=== PATIENT | female | born 1980 | race Caucasian/White ===

== ENCOUNTER → 2016-07-02 | Outpatient (CLI) | payer MEDICAID ==
[~2016-07-02] VITALS: Ht 170.2 cm; Wt 126.8 kg
[~2016-07-02] MED LIST: KEPPRA 500MG500 MG PO; KEPPRA500 MG PO; MOTRIN 400400 MG/TAB PO; TEGRETOL 2200 MG/TAB PO; TYLENOL 325MG325 MG PO
[2016-07-02 12:06] VITALS: BP 162/93; PULSE 81
[2016-07-02 13:43] VITALS: BP 137/83; PULSE 86
[2016-07-02 14:00] VITALS: BP 149/74; PULSE 83
[2016-07-02 14:20] VITALS: BP 114/54; PULSE 76
== END ==
LOC: COL.RAD 11:09
DX: M51.06 Intervertebral disc disorders with myelopathy, lumbar region (principal); M79.605 Pain in left leg; M79.604 Pain in right leg
CPT/HCPCS: G9654; J2250; J2704

== ENCOUNTER 2017-06-30 08:41 | Outpatient (CLI) | payer MEDICAID ==
[~2017-06-30] VITALS: Ht 170.2 cm; Wt 123.3 kg
[2017-06-30] VITALS (12 sets, daily range): BP systolic 105–134; BP diastolic 44–86; PULSE 74–111; TEMP 97.4
[2017-06-30 09:02] LABS: HEMATOCRIT 43.7 % (37.0-47.0); HEMOGLOBIN 14.3 g/dl (12.5-16.0); MEAN CELL VOLUME 95 fl (80.0-100.0); MEAN CORPUSCULAR HEMOGLOBIN 31 pg (27.0-31.0); MEAN CORPUSCULAR HGB CONC 33 g/dl (33.0-37.0); MEAN PLATELET VOLUME 9.6 fl (7.4-10.4); PLATELET COUNT 221 K/mm3 (130-400); RED BLOOD COUNT 4.62 M/mm3 (4.10-5.30); REDCELL DISTRIBUTION WIDTH-CV 12.3 % (11.5-14.5)
[2017-06-30 09:09] LABS: PROTHROMBIN TIME 11.9 SECONDS (9.7-12.8)
[2017-06-30] MEDS ORDERED: TYLENOL 325MG325 MG PO (09:09)
[2017-06-30 09:12] LABS: CALCIUM 9.3 mg/dL (8.4-10.2); CREATININE, serum 1.02 mg/dL (0.52-1.25); POTASSIUM 3.8 mmol/L (3.4-5.0)
== END 2017-06-30 13:33 | disposition home or self-care (01) ==
LOC: COL.RAD 08:41
PROVIDERS: Internal Medicine Cardiovascular Disease
DX: R93.1 Abnormal findings on diagnostic imaging of heart and coronary circulation (principal); I10 Essential (primary) hypertension; Z87.01 Personal history of pneumonia (recurrent); K21.9 Gastro-esophageal reflux disease without esophagitis; G89.29 Other chronic pain; R51 Headache; G40.909 Epilepsy, unspecified, not intractable, without status epilepticus; Z88.6 Allergy status to analgesic agent; Z88.5 Allergy status to narcotic agent; Z88.0 Allergy status to penicillin; F40.240 Claustrophobia
CPT/HCPCS: G9654; J2250; J2704

== ENCOUNTER → 2019-06-29 | Outpatient (CLI) | payer BC, MEDICAID | LOC: MC.RAD 10:31 | DX: Z12.31 Encounter for screening mammogram for malignant neoplasm of breast (principal); N63.21 Unspecified lump in the left breast, upper outer quadrant ==

== ENCOUNTER → 2019-07-06 | Outpatient (CLI) | payer MEDICAID | LOC: MC.RAD 10:19 | DX: N63.20 Unspecified lump in the left breast, unspecified quadrant (principal) ==

== ENCOUNTER 2019-10-06 05:03 | Day surgery (SDC) | payer MEDICAID ==
[~2019-10-06] VITALS: Ht 170.2 cm; Wt 116.6 kg
[2019-10-06] VITALS (10 sets, daily range): BP systolic 106–137; BP diastolic 50–75; PULSE 79–93; TEMP 97–98.8
[~2019-10-06 05:03] MED LIST changes: +CORICIDIN COUGH1 TAB PO; +MOTRIN 200200 MG/TAB PO
[2019-10-06] MEDS ORDERED: FLONASEALLERGY NS (05:30)
[2019-10-06] MEDS ORDERED: IBU600 MG PO (13:51)
[2019-10-06] MEDS ORDERED: PERCOCET 325 MG1 TA2 PO (13:51)
--- NOTE | 2019-10-06 18:30 | NUR ---
Bedside shift report. While in room for report patient state she would like to try to go to bathroom and walk. Patient assisted up to bathroom and able to have small BM. Patient ambulates in navarrete with assist times 1. Patient back to room and sitting up in chair at side of bed. Call light in reach.
[2019-10-07 04:00] VITALS: BP 105/59; PULSE 78; TEMP 98
--- NOTE | 2019-10-07 06:30 | NUR ---
Bedside report recieved from Anne AMADOR. 0640: Patient up to ambulate the halls. 0810: Sawant catheter removed and patient tolerates well.
[2019-10-07 08:00] VITALS: BP 110/61; PULSE 95; TEMP 97.9
--- NOTE | 2019-10-07 11:00 | NUR ---
Patient takes shower and bandages off. Incisions clean dry intact. Transportation via access to care called and scheduled pick-up 1230: Patient given discharge instructions and copys made for kamlesh Bermudez medical case manager aswell as faxed to the number given. Questions answered and plan of care discussed. 1330: Patient to ED via wheelchair and access to care transportation here for ride home. Patient gets into vehicle and tolerates well.
== END 2019-10-07 13:30 | disposition home or self-care (01) ==
LOC: SDCO 05:03 → OB 11:20 → SDCO 10-07 13:30
DX: N92.0 Excessive and frequent menstruation with regular cycle (principal); N94.5 Secondary dysmenorrhea; N92.5 Other specified irregular menstruation; N39.3 Stress incontinence (female) (male); G40.909 Epilepsy, unspecified, not intractable, without status epilepticus; F79 Unspecified intellectual disabilities; E78.5 Hyperlipidemia, unspecified; G43.909 Migraine, unspecified, not intractable, without status migrainosus; E66.01 Morbid (severe) obesity due to excess calories; Z68.41 Body mass index [BMI] 40.0-44.9, adult; F70 Mild intellectual disabilities; F32.9 Major depressive disorder, single episode, unspecified; F17.210 Nicotine dependence, cigarettes, uncomplicated; Z98.51 Tubal ligation status; Z79.899 Other long term (current) drug therapy; Z88.5 Allergy status to narcotic agent; Z88.0 Allergy status to penicillin; Z88.8 Allergy status to other drugs, medicaments and biological substances; Z91.048 Other nonmedicinal substance allergy status
CPT/HCPCS: OP; A4314; J0690; J1100; J1885; J2405; J2704; J3010; J7120

== ENCOUNTER 2019-10-08 21:57 | Emergency (ER) | payer MEDICAID ==
[~2019-10-08] VITALS: Ht 170.2 cm; Wt 116.8 kg
[~2019-10-08 21:57] MED LIST changes: +FLONASEALLERGY NS; +IBU600 MG PO; +PERCOCET 325 MG1 TA2 PO
[2019-10-08 22:12] VITALS: TEMP 98.5
[2019-10-08 23:01] LABS: COLLECTION METHOD CLEAN CATCH
[2019-10-08 23:04] LABS: BASO # 0.1 (0.0-0.2); BASO % 0.7 % (0.0-2.0); EOS # 0.2 (0.0-0.7); EOS % 1.6 % (0-4.0); GRAN # 6.7 (1.4-6.5); GRAN % 65.9 % (42.2-75.2); HEMATOCRIT 40.5 % (37.0-47.0); HEMOGLOBIN 12.9 g/dl (12.5-16.0); LYMPH # 2.4 (1.2-3.4); LYMPH % 23.6 % (20.0-51.0); MEAN CELL VOLUME 97 fl (80.0-100.0); MEAN CORPUSCULAR HEMOGLOBIN 31 pg (27.0-31.0); MEAN CORPUSCULAR HGB CONC 32 g/dl (33.0-37.0); MEAN PLATELET VOLUME 9.9 fl (7.4-10.4); MONO # 0.7 (0.1-0.6); MONO % 7.3 % (1.7-9.3); PLATELET COUNT 215 K/mm3 (130-400); RED BLOOD COUNT 4.19 M/mm3 (4.10-5.30); REDCELL DISTRIBUTION WIDTH-CV 12.4 % (11.5-14.5)
[2019-10-08 23:11] LABS: MUCOUS Present /lpf; PH 5 (5-8); SQUAMOUS EPITHELIAL 0-2 /hpf; URINE APPEARANCE Hazy; URINE BACTERIA None Seen /hpf; URINE BILIRUBIN Negative (NEGATIVE); URINE BLOOD 2+ (NEGATIVE); URINE COLOR Yellow; URINE GLUCOSE Negative (NEGATIVE); URINE KETONE Negative (NEGATIVE); URINE LEUKOCYTE ESTERASE Negative (NEGATIVE); URINE NITRATE Negative (NEGATIVE); URINE PROTEIN(semi-quant) Negative (NEGATIVE); URINE RBC 20-50 /hpf; URINE UROBILINOGEN Negative (NEGATIVE)
[2019-10-08 23:18] LABS: ALBUMIN 3.7 gm/dL (3.5-5.0); BILIRUBIN,TOTAL 0.4 mg/dL (0.0-1.0); C-REACTIVE PROTEIN 1.8 mg/dL (0.0-0.9); CALCIUM 9.2 mg/dL (8.4-10.2); CREATININE, serum 0.94 (0.52-1.25); POTASSIUM 4.3 mmol/L (3.4-5.0); TOTAL PROTEIN 7.1 gm/dL (6.4-8.2)
[2019-10-09] MEDS ORDERED: DULCOLAX STOOL100 MG PO (01:00)
[2019-10-09] MEDS ORDERED: ZOFRAN 4MG T4 MG/TAB PO (01:00)
[2019-10-09 01:16] VITALS: BP 118/83; PULSE 77
== END 2019-10-09 01:17 | disposition home or self-care (01) ==
LOC: COL.ER 21:57
PROVIDERS: Emergency Medicine
DX: G89.18 Other acute postprocedural pain (principal); R10.9 Unspecified abdominal pain; G40.909 Epilepsy, unspecified, not intractable, without status epilepticus; F17.210 Nicotine dependence, cigarettes, uncomplicated; Z79.51 Long term (current) use of inhaled steroids; Z90.710 Acquired absence of both cervix and uterus; Z90.49 Acquired absence of other specified parts of digestive tract
CPT/HCPCS: J1885; J2270; J2405; J7030

== ENCOUNTER 2020-07-07 16:06 | Emergency (ER) | payer MEDICAID ==
[~2020-07-07] VITALS: Ht 170.2 cm; Wt 136.4 kg
[~2020-07-07 16:06] MED LIST changes: +DULCOLAX STOOL100 MG PO; +ZOFRAN 4MG T4 MG/TAB PO
[2020-07-07 16:10] VITALS: TEMP 98.6
[2020-07-07 16:37] LABS: BASO % 0.6 % (0.0-2.0); EOS # 0.1 (0.0-0.7); GRAN # 4.6 (1.4-6.5); GRAN % 65.5 % (42.2-75.2); HEMATOCRIT 42.6 % (37.0-47.0); HEMOGLOBIN 13.9 g/dl (12.5-16.0); LYMPH # 1.7 (1.2-3.4); LYMPH % 23.7 % (20.0-51.0); MEAN CELL VOLUME 95 fl (80.0-100.0); MEAN CORPUSCULAR HEMOGLOBIN 31 pg (27.0-31.0); MEAN CORPUSCULAR HGB CONC 33 g/dl (33.0-37.0); MEAN PLATELET VOLUME 9.7 fl (7.4-10.4); MONO # 0.6 (0.1-0.6); MONO % 8.8 % (1.7-9.3); PLATELET COUNT 230 K/mm3 (130-400); RED BLOOD COUNT 4.47 M/mm3 (4.10-5.30); REDCELL DISTRIBUTION WIDTH-CV 12.3 % (11.5-14.5)
[2020-07-07 16:54] LABS: COLLECTION METHOD CLEAN CATCH
[2020-07-07 16:56] LABS: ALBUMIN 3.9 gm/dL (3.5-5.0); BILIRUBIN,TOTAL 0.3 mg/dL (0.0-1.0); C-REACTIVE PROTEIN 0.8 mg/dL (0.0-0.9); CREATININE, serum 1.01 (0.52-1.25); POTASSIUM 3.9 mmol/L (3.4-5.0); TOTAL PROTEIN 6.9 gm/dL (6.4-8.2)
[2020-07-07] MEDS ORDERED: ZOLOFT 50MG50 MG PO (17:05)
[2020-07-07 17:17] LABS: MUCOUS Present /lpf; PH 5 (5-8); SQUAMOUS EPITHELIAL 0-2 /hpf; URINE APPEARANCE Clear; URINE BACTERIA Rare /hpf; URINE BILIRUBIN Negative (NEGATIVE); URINE BLOOD Negative (NEGATIVE); URINE COLOR Yellow; URINE GLUCOSE Negative (NEGATIVE); URINE KETONE Negative (NEGATIVE); URINE LEUKOCYTE ESTERASE Negative (NEGATIVE); URINE NITRATE Negative (NEGATIVE); URINE PROTEIN(semi-quant) Negative (NEGATIVE); URINE RBC 0-2 /hpf; URINE UROBILINOGEN Negative (NEGATIVE)
[2020-07-07 18:45] VITALS: BP 134/78; PULSE 86
== END 2020-07-07 18:45 | disposition home or self-care (01) ==
LOC: COL.ER 16:06
PROVIDERS: Nurse Practitioner
DX: G40.909 Epilepsy, unspecified, not intractable, without status epilepticus (principal); Z88.0 Allergy status to penicillin; Z88.8 Allergy status to other drugs, medicaments and biological substances; Z88.6 Allergy status to analgesic agent
CPT/HCPCS: J1953

== ENCOUNTER 2020-09-07 20:20 | Emergency (ER) | payer MEDICAID ==
[~2020-09-07] VITALS: Ht 170.2 cm; Wt 113.6 kg
[~2020-09-07 20:20] MED LIST changes: +ZOLOFT 50MG50 MG PO
[2020-09-07 20:29] VITALS: BP 128/90; TEMP 97.7
[2020-09-07 21:17] VITALS: PULSE 78
== END 2020-09-07 21:17 | disposition home or self-care (01) ==
LOC: COL.ER 20:20
DX: T63.331A Toxic effect of venom of brown recluse spider, accidental (unintentional), initial encounter (principal); G40.909 Epilepsy, unspecified, not intractable, without status epilepticus; F17.210 Nicotine dependence, cigarettes, uncomplicated; Z88.0 Allergy status to penicillin; Z88.8 Allergy status to other drugs, medicaments and biological substances; Z88.6 Allergy status to analgesic agent

== ENCOUNTER 2021-01-11 13:28 | Emergency (ER) | payer MEDICAID ==
[~2021-01-11] VITALS: Ht 170.2 cm; Wt 127.3 kg
--- NOTE | 2021-01-11 15:10 | NUR ---
SW received call for consult on patient in ED. Patient is reported to be from [facility]. SW attempted to met with patient about care. Patient refused to talk with SW about her care to support her. SW Staffed with Nurse about care. Nurse reports that the patient stated that she would only talk with one of our social workers or her case mgr. SW called several numbers on the patients face sheet. Patient reports that her family member is Lara Kaur [facility]. SW called [phone] and [phone], . Nurse was able to get a [facility] . Called tennis professional number at for weekend care support and did not get any answer. Cass reports that the patient lives alone and attends the day services program Wednesday Through Wednesday. They are not able to provide transportation or services through the weekend. SW educated that we are unable to obtain information from her to support her. Cass reported that she cortney escalate to her supervisior. Awaiting a call. SW spoke with supervisior and discussed calling PD to support obtaining a contact for her. Notified Dispatch of patient not able to talk to us and locating a person to contact from [facility] to support client . Dispatch reports that they will have an officer called Sean Ruiz and stated that he attempted to locate someone and the office is closed. Officer suggested calling [facility] and seeing if there are any supports there. SW called [facility] at [phone] and spoke with Haylee at the stabilization unit. Phone Call dropped. Attempted another conversation with patient. Patient stated that she was having seizures. Educated on Following up with [facility] on Wednesday. Called contact that was with patient. Patient gave another number to a friend [employer] will transport her home. NF>
[2021-01-11 15:53] VITALS: BP 120/61; PULSE 80
== END 2021-01-11 15:52 | disposition home or self-care (01) ==
LOC: COL.ER 13:28
DX: F41.9 Anxiety disorder, unspecified (principal); K14.8 Other diseases of tongue; G40.909 Epilepsy, unspecified, not intractable, without status epilepticus; Z79.899 Other long term (current) drug therapy; Z88.6 Allergy status to analgesic agent

== ENCOUNTER 2021-01-13 19:05 | Emergency (ER) | payer MEDICAID ==
[~2021-01-13] VITALS: Ht 172.7 cm; Wt 106.8 kg
[2021-01-13 19:05] VITALS: BP 136/85; PULSE 92; TEMP 98.6
== END 2021-01-13 20:00 | disposition home or self-care (01) ==
LOC: COL.ER 19:05
DX: F41.9 Anxiety disorder, unspecified (principal); G40.909 Epilepsy, unspecified, not intractable, without status epilepticus; Z79.899 Other long term (current) drug therapy

== ENCOUNTER 2021-09-11 13:07 | Emergency (ER) | payer MEDICAID ==
[~2021-09-11] VITALS: Ht 170.2 cm; Wt 120.5 kg
[2021-09-11 13:09] VITALS: TEMP 98.2
[2021-09-11 13:50] LABS: BASO # 0.1 K/mm3 (0.0-0.2); BASO % 0.7 % (0.0-2.0); EOS # 0.1 K/mm3 (0.0-0.7); EOS % 0.7 % (0.0-4.0); GRAN # 5.7 K/mm3 (1.4-6.5); GRAN % 77.8 % (42.2-75.2); HEMATOCRIT 43.4 % (37.0-47.0); HEMOGLOBIN 14.4 g/dl (12.5-16.0); LYMPH % 13.9 % (20.0-51.0); MEAN CELL VOLUME 92 fl (80.0-100.0); MEAN CORPUSCULAR HEMOGLOBIN 31 pg (27-31); MEAN CORPUSCULAR HGB CONC 33 g/dl (33.0-37.0); MEAN PLATELET VOLUME 9.6 fl (7.4-10.4); MONO # 0.5 K/mm3 (0.1-0.6); MONO % 6.5 % (1.7-9.3); PLATELET COUNT 236 K/mm3 (130-400); RED BLOOD COUNT 4.71 M/mm3 (4.10-5.30); REDCELL DISTRIBUTION WIDTH-CV 12.3 % (11.5-14.5)
[2021-09-11 14:07] LABS: ALANINE AMINOTRANSFERASE 12 U/L (0-55); ALBUMIN 3.7 gm/dL (3.5-5.0); ALKALINE PHOSPHATASE 83 U/L (40-150); ANION GAP 8 mmol/L (7-16); AST,SGOT 12 U/L (5-34); BILIRUBIN,TOTAL 0.5 mg/dL (0.2-1.2); BLOOD UREA NITROGEN 14 mg/dL (7-19); CALCIUM 8.9 mg/dL (8.4-10.2); CARBON DIOXIDE 23 mmol/L (22-29); CHLORIDE 108 mmol/L (98-107); CREATININE, serum 0.96 mg/dL (0.57-1.11); GLUCOSE 118 mg/dL (70-99); POTASSIUM 4.1 mmol/L (3.5-4.5); SODIUM 139 mmol/L (136-145); TOTAL PROTEIN 6.9 gm/dL (6.2-8.1)
[2021-09-11 14:11] LABS: COLLECTION METHOD CLEAN CATCH
[2021-09-11 14:13] LABS: ALCOHOL(ethanol),MEDICAL < 10 mg/dL (0-10)
[2021-09-11 14:38] LABS: AMORPHOUS CRYSTAL Present (NOT PRESENT); MUCOUS Present (NOT PRESENT); PH 5 (5-8); URINE APPEARANCE Cloudy (CLEAR/HAZY); URINE BACTERIA Rare /hpf (NONE SEEN); URINE BILIRUBIN Negative (NEGATIVE); URINE BLOOD Negative (NEGATIVE); URINE COLOR Yellow (YELLOW); URINE GLUCOSE Negative (NEGATIVE); URINE KETONE Negative (NEGATIVE); URINE LEUKOCYTE ESTERASE 2+ (NEGATIVE); URINE NITRATE Negative (NEGATIVE); URINE PROTEIN(semi-quant) 2+ (NEGATIVE); URINE UROBILINOGEN Negative (NEGATIVE)
[2021-09-11 14:41] LABS: TRICYCLIC ANTIDEPRESS URINE NEGATIVE
[2021-09-11 19:02] VITALS: BP 123/67; PULSE 82
== END 2021-09-11 19:03 | disposition home or self-care (01) ==
LOC: COL.ER 13:07
PROVIDERS: Physician Assistant
DX: R56.9 Unspecified convulsions (principal); E22.1 Hyperprolactinemia
CPT/HCPCS: J1953; J7030

== ENCOUNTER 2022-06-09 12:34 | Observation (INO) | payer MEDICAID ==
[~2022-06-09] VITALS: Ht 170.2 cm; Wt 135.0 kg
[2022-06-09 13:20] LABS: BASO % 0.4 % (0.0-2.0); EOS # 0.1 K/mm3 (0.0-0.7); EOS % 0.7 % (0.0-4.0); GRAN # 8.1 K/mm3 (1.4-6.5); GRAN % 75.2 % (42.2-75.2); HEMATOCRIT 44.6 % (37.0-47.0); HEMOGLOBIN 14.2 g/dl (12.5-16.0); LYMPH # 1.6 K/mm3 (1.2-3.4); LYMPH % 14.7 % (20.0-51.0); MEAN CELL VOLUME 94 fl (80.0-100.0); MEAN CORPUSCULAR HEMOGLOBIN 30 pg (27-31); MEAN CORPUSCULAR HGB CONC 32 g/dl (33.0-37.0); MEAN PLATELET VOLUME 9.9 fl (7.4-10.4); MONO # 0.8 K/mm3 (0.1-0.6); MONO % 7.6 % (1.7-9.3); PLATELET COUNT 202 K/mm3 (130-400); RED BLOOD COUNT 4.76 M/mm3 (4.10-5.30); REDCELL DISTRIBUTION WIDTH-CV 12.4 % (11.5-14.5)
[2022-06-09 13:33] LABS: ALANINE AMINOTRANSFERASE 9 U/L (0-55); ALBUMIN 3.3 gm/dL (3.5-5.0); ALKALINE PHOSPHATASE 86 U/L (40-150); ANION GAP 9 mmol/L (7-16); AST,SGOT 9 U/L (5-34); BLOOD UREA NITROGEN 12 mg/dL (7-19); CALCIUM 9.2 mg/dL (8.4-10.2); CARBON DIOXIDE 24 mmol/L (22-29); CHLORIDE 104 mmol/L (98-107); CREATININE, serum 0.96 mg/dL (0.57-1.11); GLUCOSE 111 mg/dL (70-99); LIPASE 23 U/L (8-78); POTASSIUM 3.9 mmol/L (3.5-4.5); SODIUM 137 mmol/L (136-145); TOTAL PROTEIN 7.4 gm/dL (6.2-8.1)
[2022-06-09 13:39] LABS: TROPONIN-I < 0.010 ng/mL (0.00-0.033)
[2022-06-09 13:48] LABS: COLLECTION METHOD CLEAN CATCH
[2022-06-09 13:57] LABS: URINE APPEARANCE Hazy (CLEAR/HAZY); URINE BLOOD Negative (NEGATIVE); URINE COLOR Yellow (YELLOW); URINE GLUCOSE Negative (NEGATIVE); URINE KETONE Negative (NEGATIVE); URINE NITRATE Negative (NEGATIVE); URINE PROTEIN(semi-quant) Negative (NEGATIVE); URINE UROBILINOGEN 0.2 E.U/dL (0.2-1.0)
[2022-06-09] MEDS ORDERED: PEPCID 20MG TAB20 MG PO (14:52)
[2022-06-09 16:16] LABS: INR 1.1 (0.8-3.0); PROTHROMBIN TIME 12.4 SECONDS (9.7-12.8)
[2022-06-09 16:19] LABS: PARTIAL THROMBOPLASTIN TIME 27.9 SECONDS (26.0-37.0)
[2022-06-09 17:31] VITALS: BP 146/73; PULSE 94; TEMP 98.4
[2022-06-09] MEDS ORDERED: MIRALAX PA17 GM/Dose PO (17:38)
--- NOTE | 2022-06-09 18:26 | NUR ---
PATIENT ADMITTED TO ROOM 317 FROM ER ACCOMPANIED BY DRAMATIC AGENT. PATIENT IS ALERT AND ORIENTED. LUNGS CTA. C/O PAIN 6/10 TO HER RIGHT SIDE, BUT STATES SHE DOES NOT WANT TO TAKE ANY PAIN MEDICATION WHEN OFFERED. SCAB NOTED TO RIGHT LOWER EXTREMITY, PATIENT STATES THIS IS FROM A CAT SCRATCH. PATIENT NOTED TO BE PICKING AT THE AREA. PATIENT ALSO COMPLAINING OF SORES AND ITCHING TO HER LABIA, ROBINA JARQUIN UPDATED WHO WILL ASSESS THE PATIENT TONIGHT. IV TO LEFT AC PATENT, SOME BLEEDING NOTED AFTER PATIENT PULLED IV DURING AMBULATION, AREA CLEANSED AND STILL FLUSHING WELL, AREA WRAPPED AND PATIENT ENCOURAGED TO NOTIFY RN IF SHE NOTICES ANY MORE BLEEDING FROM HER IV SITE, PATIENT AGREEABLE. PATIENT IS RESISTIVE TO CARES AND STAFF INTERVENTIONS. ORIENTED TO ROOM AND CALL LIGHT, PATIENT DENIES FURTHER NEEDS AT THIS TIME. CALL LIGHT WITHIN REACH.
--- NOTE | 2022-06-09 18:34 | NUR ---
ATTEMPTED TO COMPLETED MED REC WITH PATIENT, PATIENT STATES "YOU'RE ASKING STUPID QUESTIONS" AND REFUSED TO COMPLETED MED REC WITH THIS RN. PRIMARY CARE OFFICE NOTIFIED OF PATIENT'S ARRIVAL AND REQUEST MADE TO SEND CURRENT MED LIST. MED REC COMPELTED USING CURRENT MED LIST FROM PCP OFFICE, PER PATIENT, SHE DOES TAKE THREE KEPPRA BID AND HER "ANXIETY" MEDICATION ONCE PER DAY. DR. DISLA UPDATED.
[2022-06-09 19:50] VITALS: BP 134/75; PULSE 108; TEMP 97.4
--- NOTE | 2022-06-10 00:03 | NUR ---
THIS NURSE NOTED BLEEDING TO IV SITE. IV FLUSHES WELL. THIS NURSE WRAPPED IV WITH DORA WRAP AND YAYA WRAP. PATIENT INFORMED NOT TO PULL ON IV AND TO BE CAUTIOUS WITH IT. PATIENT VERBALIZED UNDERSTANDING AND DENIES FURTHER NEEDS AT THIS TIME
--- NOTE | 2022-06-10 00:05 | NUR ---
THIS NURSE WENT IN ROOM WITH BRITTON QUARLES TO BE A WITNESS JESSE QUARLES WAS EXAMINING VAGINA. ROBINA ORDERED A REPEAT UA TO TEST FOR CHLAMYDIA AND GONORRHEA. ROBINA ALSO ORDERED UROJET AND TUCKS PAD TO PROVIDE RELIEF FOR PATIENT. THIS NURSE PERFORMED MARY GRACE CARE ON PATIENT AND APPLIED URO JET TO LESIONS. PATIENT DENIES FURTHER QUESTIONS OR CONERNS AT THIS TIME
[2022-06-10 00:15] VITALS: BP 148/85; PULSE 97; TEMP 98.6
[2022-06-10 04:00] VITALS: BP 131/83
[2022-06-10 07:19] LABS: BASO # 0.1 K/mm3 (0.0-0.2); BASO % 0.6 % (0.0-2.0); EOS # 0.1 K/mm3 (0.0-0.7); EOS % 1.5 % (0.0-4.0); GRAN # 5.8 K/mm3 (1.4-6.5); GRAN % 68.8 % (42.2-75.2); HEMATOCRIT 38.6 % (37.0-47.0); HEMOGLOBIN 12.3 g/dl (12.5-16.0); LYMPH # 1.6 K/mm3 (1.2-3.4); LYMPH % 19.1 % (20.0-51.0); MEAN CELL VOLUME 94 fl (80.0-100.0); MEAN CORPUSCULAR HEMOGLOBIN 30 pg (27-31); MEAN CORPUSCULAR HGB CONC 32 g/dl (33.0-37.0); MEAN PLATELET VOLUME 10.4 fl (7.4-10.4); MONO # 0.8 K/mm3 (0.1-0.6); MONO % 9.2 % (1.7-9.3); PLATELET COUNT 188 K/mm3 (130-400); RED BLOOD COUNT 4.12 M/mm3 (4.10-5.30); REDCELL DISTRIBUTION WIDTH-CV 12.4 % (11.5-14.5)
[2022-06-10 07:30] LABS: CALCIUM 8.7 mg/dL (8.4-10.2); CREATININE, serum 0.93 mg/dL (0.57-1.11); POTASSIUM 3.7 mmol/L (3.5-4.5)
[2022-06-10 08:19] VITALS: BP 134/69; PULSE 94; TEMP 98.6
--- NOTE | 2022-06-10 09:13 | NUR ---
THIS RN ATTEMPTED TO DO MORNING ASSESSMENT WITH MORNING MEDICATION PASS, HOWEVER, PATIENT REFUSED. PATIENT STATES SHE IS HAVING SOME PAIN TO HER RIGHT SIDE, STATES HER PAIN IS WORSE WHEN TRYING TO TAKE A DEEP BREATH, AND STATES PAIN IS 10/10. THIS RN OFFERED PRN PAIN MEDICATION, BUT PATIENT REFUSED AND STATES SHE NEEDS TO THINK ABOUT IT. PATIENT THEN STATES SHE WANTS PAIN MEDICATION BUT "SOMETHING STRONGER THAN WHAT I GOT YESTERDAY BECAUSE IT DIDN'T DO ANYTHING." PA STUDENT, PEG, UPDATED REGARDING PATIENT'S REQUEST FOR STRONGER PAIN MEDICATION. PATIENT ALSO STATES SHE VOMITTED DURING BREAKFAST, HOWEVER, NO EMESIS WAS SEEN. PRN ZOFRAN OFFERED BUT PATIENT REFUSED AND STATED SHE MAY TAKE IT LATER. THIS RN WENT TO REASSESS PATIENT AND NOTED PATIENT TO BE SLEEPING AT THIS TIME, DOES NOT APPEAR TO BE IN PAIN OR UNCOMFORTABLE, WILL REASSESS PAIN UPON PATIENT'S AWAKENING. HEPARIN GTT RUNNING AT THIS TIME, NO SIGNS OF BLEEDING NOTED. CALL LIGHT WITHIN REACH.
--- NOTE | 2022-06-10 09:48 | NUR ---
PATIENT STILL SLEEPING AT THIS TIME. NO SIGNS OR PAIN OR DISCOMFORT NOTED. HR ON TELE 86, RESPIRATORY RATE REGULAR.
--- NOTE | 2022-06-10 10:10 | NUR ---
Initial visit; Patient in pain and very uncomfortable. Medication Care Manager states she will return another time but will keep her in Medication Care Manager's prayers.
--- NOTE | 2022-06-10 10:25 | NUR ---
THIS RN AND PA STUDENT IN PATIENT'S ROOM TO ATTEMPT TO ASSESS PATIENT. PATIENT SLEEPING AND DIFFICULT TO AROUSE. STERNAL RUB PERFORMED X1, WHICH WAS EFFECTIVE IN WAKING PATIENT, HOWEVER, PATIENT BECAME AGITATED AT THIS RN. EDUCATION PROVIDED TO PATIENT ON NEED FOR STERNAL RUB DUE TO PATIENT BEING DIFFICULT TO AROUSE. PATIENT STATES SHE IS STILL HAVING PAIN AND NAUSEA AND IS NOW AGREEABLE TO MEDICATIONS. PRN APAP AND ZOFRAN GIVEN PER ORDER. TRUCK CLEANER AT BEDSIDE TO PERFORM VENOUS DUPLEX, PATIENT REQUESTED THIS RN STAY AT BEDSIDE AND STATES "I FEEL MORE COMFORTABLE WITH YOU HERE." THIS RN STAYED AT BEDSIDE FOR A FEW MINUTES AND THEN PATIENT STATES SHE IS OKAY IF RN LEAVES. PATIENT WITH CALL LIGHT IN PLACE, DENIES FURTHER NEEDS.
[2022-06-10 11:26] VITALS: BP 141/70; PULSE 90; TEMP 98.2
[2022-06-10] MEDS ORDERED: ELIQUIS 5MG PO (14:16)
--- NOTE | 2022-06-10 14:20 | NUR ---
RAJESH met with patient to complete intake. Patient is scheduled to discharge later today. Patient is a client and receives services through [facility] and [facility], however is high functioning and lives independently in her own apartment. Patient does not utilize any home oxygen or DME supplies. PCP is Carol Hess, and [facility] Patient has verbalized that she does not feel comfortable returning home because the chair she sleeps in is broken. RAJESH Sanz spoke with [facility] about the patients concerns. [facility] is scheduled to pick the patient up at 1500. Discharge plan: Home with continued services.
--- NOTE | 2022-06-10 15:53 | NUR ---
PATIENT DISCHARGED PER ORDER. IV TO RIGHT AC REMOVED WITH CATHETER INTACT, NO BLEEDING NOTED, GAUZE DRESSING APPLIED. DISCHARGE EDUCATION PROVIDED ON MEDICATIONS, FOLLOW UPS, AND DIAGNOSIS, THOUGH PATIENT DID NOT APPEAR TO BE INTERESTED IN DISCHARGE TEACHING. PER PATIENT, [facility] ASSISTS HER WITH HER MEDICATIONS. MEDICATION LIST AND DISCHARGE INFORMATION FAXED TO [facility] BY IMAGING SPECIALIST. PATIENT DENIES FURTHER QUESTIONS OR NEEDS. TELEMETRY DISCONTINUED. PATIENT ESCORTED OUT BY STAFF.
--- NOTE | 2022-06-10 16:16 | NUR ---
Financial Institution Manager contacted [facility] and spoke with patient's Tunnel Elastic Operator Chainstitch, Juan R Sanders to provide udpate. Patient receives Residential Services from [facility]. SW contacted [facility] and was advised they assist with patient's medications. SW faxed updates to both [facility] and [facility]. SW contacted [facility] and they will grain picker patient this afternoon and get her home.
== END 2022-06-10 15:56 | disposition home or self-care (01) ==
LOC: COL.ER 12:34 → MEDICAL 15:53
PROVIDERS: Emergency Medicine; Family Medicine; ADMIT Student in an Organized Health Care Education/Training Program
DX: I26.99 Other pulmonary embolism without acute cor pulmonale (principal); R10.11 Right upper quadrant pain; R03.0 Elevated blood-pressure reading, without diagnosis of hypertension; G40.909 Epilepsy, unspecified, not intractable, without status epilepticus; F32.A Depression, unspecified; F41.9 Anxiety disorder, unspecified; N90.89 Other specified noninflammatory disorders of vulva and perineum; Z79.899 Other long term (current) drug therapy
CPT/HCPCS: G0378; J1644; J1885; J2060; J2405; J3010; Q9967

== ENCOUNTER 2022-08-04 12:30 | Inpatient (IN) | payer MEDICAID ==
[~2022-08-04] VITALS: Ht 170.2 cm; Wt 122.0 kg
[~2022-08-04 12:30] MED LIST changes: +ELIQUIS 5MG PO; +MIRALAX PA17 GM/Dose PO; +PEPCID 20MG TAB20 MG PO
[2022-08-04 13:41] LABS: BASO # 0.1 K/mm3 (0.0-0.2); BASO % 0.5 % (0.0-2.0); EOS # 0.1 K/mm3 (0.0-0.7); EOS % 0.9 % (0.0-4.0); GRAN # 7.1 K/mm3 (1.4-6.5); GRAN % 73.4 % (42.2-75.2); HEMATOCRIT 43.3 % (37.0-47.0); HEMOGLOBIN 14.3 g/dl (12.5-16.0); LYMPH # 1.6 K/mm3 (1.2-3.4); LYMPH % 16.6 % (20.0-51.0); MEAN CELL VOLUME 89 fl (80.0-100.0); MEAN CORPUSCULAR HEMOGLOBIN 30 pg (27-31); MEAN CORPUSCULAR HGB CONC 33 g/dl (33.0-37.0); MEAN PLATELET VOLUME 10.1 fl (7.4-10.4); MONO # 0.8 K/mm3 (0.1-0.6); MONO % 7.8 % (1.7-9.3); PLATELET COUNT 316 K/mm3 (130-400); RED BLOOD COUNT 4.85 M/mm3 (4.10-5.30); REDCELL DISTRIBUTION WIDTH-CV 12.6 % (11.5-14.5)
[2022-08-04 14:01] LABS: ALANINE AMINOTRANSFERASE 13 U/L (0-55); ALBUMIN 3.2 gm/dL (3.5-5.0); ALKALINE PHOSPHATASE 75 U/L (40-150); ANION GAP 12 mmol/L (7-16); AST,SGOT 8 U/L (5-34); BILIRUBIN,TOTAL 0.5 mg/dL (0.2-1.2); BLOOD UREA NITROGEN 9 mg/dL (7-19); CALCIUM 9.5 mg/dL (8.4-10.2); CARBON DIOXIDE 25 mmol/L (22-29); CHLORIDE 104 mmol/L (98-107); CREATININE, serum 1.02 mg/dL (0.57-1.11); GLUCOSE 109 mg/dL (70-99); POTASSIUM 3.8 mmol/L (3.5-4.5); SODIUM 141 mmol/L (136-145); TOTAL PROTEIN 7.8 gm/dL (6.2-8.1)
[2022-08-04 14:07] LABS: TROPONIN-I < 0.010 ng/mL (0.00-0.033)
[2022-08-04 16:20] VITALS: BP 120/66; PULSE 101; TEMP 97.6
[2022-08-04 19:26] VITALS: BP 147/74; PULSE 93; TEMP 98.7
--- NOTE | 2022-08-05 07:07 | NUR ---
Shift assessment completed. Pt. A&O x4. Telemetery on. HR Reg. Breath sounds diminished bilat. lower lobes. O2 sat 93% room air. Pt. denies c/o pain. NPO satus remains at this time.
[2022-08-05 07:36] VITALS: BP 120/64; PULSE 92; TEMP 97.8
[2022-08-05 08:10] LABS: BASO % 0.4 % (0.0-2.0); EOS # 0.2 K/mm3 (0.0-0.7); EOS % 2.1 % (0.0-4.0); GRAN # 5.6 K/mm3 (1.4-6.5); GRAN % 73.2 % (42.2-75.2); LYMPH # 1.1 K/mm3 (1.2-3.4); LYMPH % 14.7 % (20.0-51.0); MEAN CELL VOLUME 89 fl (80.0-100.0); MEAN CORPUSCULAR HGB CONC 33 g/dl (33.0-37.0); MEAN PLATELET VOLUME 9.8 fl (7.4-10.4); MONO # 0.7 K/mm3 (0.1-0.6); MONO % 8.8 % (1.7-9.3); PLATELET COUNT 274 K/mm3 (130-400); RED BLOOD COUNT 4.09 M/mm3 (4.10-5.30); REDCELL DISTRIBUTION WIDTH-CV 12.6 % (11.5-14.5)
[2022-08-05 08:11] LABS: HEMATOCRIT 36.4 % (37.0-47.0); HEMOGLOBIN 12.1 g/dl (12.5-16.0); MEAN CORPUSCULAR HEMOGLOBIN 30 pg (27-31)
[2022-08-05 08:26] LABS: CALCIUM 8.6 mg/dL (8.4-10.2); CREATININE, serum 0.87 mg/dL (0.57-1.11); POTASSIUM 3.9 mmol/L (3.5-4.5)
--- NOTE | 2022-08-05 10:00 | NUR ---
Pt. up to BR stand by assist. SOA noted with activity. O2 sat 92%. Primary nurse informed and at bedside. O2 on @ 2L per NC. O2 applied sats increase to 95%.
--- NOTE | 2022-08-05 10:34 | NUR ---
Initial visit; Mar remembers Liner Machine Operator from a prior hospitalization. She speaks of her pain level and requests Liner Machine Operator bring her a stuffed animal. Liner Machine Operator is unable to locate a cat or dog with the gift shop closed and no other resource available at this time. Liner Machine Operator offers prayer for Mar.
[2022-08-05 11:47] VITALS: BP 127/80; PULSE 104; TEMP 97.4
--- NOTE | 2022-08-05 13:13 | NUR ---
The patient is a client and receives residential services from [facility]. RAJESH contacted Claudette, recreation programmer, at [facility]. She confirms the patient lives alone in [facility] [place] and receives residential services through them. They assist the patient with her meds, take her to appointments, and help with grocery shopping. The patient's PCP is Dr. Carol Avila and she receives her medications from [facility] Claudette reports that the patient does not have a DPOA-HC and she does not think the patient has an emergency contact. [facility] is listed as her emergency contact. Diana confirms that they will transport the patient home upon discharge. The hospital can either call the patient's independent worker, Cass Mcdowell (ph#[phone]) or Claudette at [phone] to set up transport home. *Discharge plan: home with residential services from [facility]*
--- NOTE | 2022-08-05 16:54 | NUR ---
Patient scheduled telehealth visit with Dr. Oliva, Infectious Disease. Pt consents to visit. Equipment set up, audio and video connections established. Visit conducted by . No technical concerns or issues.
--- NOTE | 2022-08-05 19:06 | NUR ---
THROUGHOUT THE DAY THE PATIENT HAS BEEN HAVING MOMENTS OF AGITATION AND NOT WANTING TO TAKE HER MEDICATIONS. This afternoon she talked with this RN and stated she just wants to feel better and would consider taking pain medications "later". 1709- pt stated she has had a ton of pain but did not want to say anything because she was afraid of taking more medication. She was given oxycodone as ordered in eMAR. Currently the patient is sitting up in bed eating a snack and is feeling much better. She appears more relaxed and is looking forward to her OR time tomorrow. PT is thankful and is hopeful for rest. Will report to oncoming RN.
[2022-08-05 19:41] VITALS: BP 117/63; PULSE 95; TEMP 97.5
[2022-08-06] VITALS (14 sets, daily range): BP systolic 109–136; BP diastolic 45–89; PULSE 82–104; TEMP 99–99.7
--- NOTE | 2022-08-06 03:02 | NUR ---
THIS NURSE IN TO ADMINSTER IV ANTIBIOTICS AND PATIENT AWAKE IN ROOM. THIS NURSED ASKED PATIENT IF SHE COULD GRAB HER VITALS WHILE SHE WAS AWAKE. PATIENT STATED "ITS 3 IN THE MORNING NO IM NOT AWAKE." "YOU GUYS DID THIS TO ME YESTERDAY AND WOKE ME UP." THIS NURSE INFORMED PATIENT IT IMPORTANT THAT WE MONITOR PATIENTS VITALS EVERY FOUR HOURS WHILE THEY ARE IN THE HOSPITAL. PATIENT STATED "IM NOT AWAKE AT 3 IN THE MORNING AND I DONT WANT YOU TO TAKE MY VITALS." NO FURTHER COMMENTS OR CONCERNS AT THIS TIME. CALL LIGHT WITHIN REACH
--- NOTE | 2022-08-06 06:26 | NUR ---
0247. PRESENTED TO ROOM TO CHECK ON PATIENT AND O2. PT ON RA AND SATS WERE 87% ATTEMPTED TO WAKE PT. PT DID NOT WAKE. STARTED PLACING NC ON PT, PT QUICKLY AWAKENED AND WAS EXTREMELY AGGITATED AND SHAKING HEAD. SHE STATS "I TOOK THAT OFF FOR A REASON!" ATTEMPTED TO NOTIFY PT OF REASON FOR O2 AND THAT SATS HAD DECREASED BELOW AN ACCEPTABLE RANGE. SHE CONTINUE TO SAY SHE TOOK IT OFF FOR A REASON AND IT WAS MESSING UP HER BREATHING. CONTINUED TO ATTEMPT EDUCATING PT. SHE IS CONTINUING TO REFUSE USE OF O2. VERBALIZED UNDERSTANDING TO PT AND STATED THAT IT WOULD BE CHARTED AND CARE PROVIDERS NOTIFIED. I WAS WALKING OUT SHE HOLLERED IM NOT STUPID. REPORTED TO RN PT ENCOUNTER. RN WAS ABLE TO CONVINCE PT TO GO ON O2. 0530 CALLED TO ROOM DUE TO PT SAYING SHE WAS SOB. WHEN PRESENTED ATTEMPTED TO CHECK O2 AND SHE BECAME ANGRY AND STATED "THAT ISNT WHY I CALLED YOU" ATTEMPTED TO EDUCATE PATIENT SHE CONTINUED TO SAY THAT THE PULSE OX WASN'T WHY SHE CALLED AND THAT SHE WAS SOA. ASKED PT TO FURTHER CLARIFY. PT STATES ANGRILY THAT i NEED TYLENOL! THATS ALL I CAN TAKE. LEFT ROOM AND REPORTED TO RN
--- NOTE | 2022-08-06 08:52 | NUR ---
SHIFT ASSESSMENT COMPLETED. MORNING MEDICATIONS HELD D/T BEING NPO, PATIENT REFUSED KEPPRA, STATES SHE WANTS TO TAKE IT WHEN SHE RETURNS. ALERT AND ORIENTED. C/O SOME PAIN TO HER THROAT FROM BEING DRY. GOING DOWN FOR SURGERY AT THIS TIME. REPORT GIVEN TO PERRY MICHEL IN SURGICAL.
[2022-08-06 10:50] LABS: PLEURAL FLUID RBC 20000 /mm3 (0-0); PLEURAL FLUID WBC 527 /mm3
[2022-08-06 10:59] LABS: PLEURAL FLUID APPEARANCE CLOUDY
[2022-08-06 11:01] LABS: PLEURAL FLUID COLOR OTHER
--- NOTE | 2022-08-06 13:02 | NUR ---
PATIENT TRANSFERED TO ROOM 350. PATIENT AWAKE AND ALERT, VITAL SIGNS STABLE (BP 120/91 HR 82 O2 SATURATION 96% 2LNC) CHEST TUBE INTACT AND DRAINING. DEVORAH AT 700CC WHEN TRANSFERED. IV FLUID AND VANCOMYCIN INFUSING.
--- NOTE | 2022-08-06 13:05 | NUR ---
PATIENT RETURNED FROM SURGERY AT 1000. POST OP VITAL SIGNS INITATED. PATIENT DROWSY BUT EASY TO AROUSE. C/O PAIN, PAIN MEDS OFFERED, WHICH PATIENT INITALLY REFUSED, BUT LATER AGREED TO. DRESSING TO CHEST TUBE NOTED TO NOT HAVE OCCLUSIVE DRESSING IN PLACE, OCCLUSIVE DRESSING PLACED. 700ML SANGUINEOUS DRAINAGE NOTED TO CHEST TUBE. PER DR. CLARK, PATIENT NOT TO BE ON SUCTION. PATIENT TRANSFERED TO ROOM 350 AT 1300. REPORT GIVEN TO PERRY العراقي.
--- NOTE | 2022-08-06 13:20 | NUR ---
Telehealth visit conducted with Dr. Kwabena Oliva, Infectious Disease. Patient consented to visit. Freight Car Cleaner initiated without any difficulties during exam. All questions were answered by Dr. Oliva.
--- NOTE | 2022-08-06 17:20 | NUR ---
PATIENT UNABLE TO ANSWER SIMPLE QUESTIONS. VERY DELAYED IN RESPONSE, AND OFTEN REPEATS SAME WORD MULTIPLE TIMES. PATIENT ASKED IF SHE WOULD LIKE ANY PAIN MEDICAITON, THEN STATED "YOU JUST GAVE ME SOME!" I INFORMED THE PATIENT THE LAST TIME SHE HAD PAIN MEDICATION WAS ON THE MEDICAL UNIT WITH HER PREVIOUS NURSE AT AROUND 1230. I THEN ASKED THE PATIENT IF SHE WOULD LIKE ME TO BRING HER TYLENOL, IT IS AVAILABLE AT THIS TIME. PATIENT REFUSED. KEPT REPEATING HER STOMACH HURT, THIS RN ENCOURAGED INTAKE PATIENT HAS ON ATE. AND ONLY HAD A CUP OF PUDDING TODAY. PATIENT DID NOT RESPOND TO NURSE. CALL LIGHT WITHIN REACH.
--- NOTE | 2022-08-06 17:46 | NUR ---
PATIENT NOW CALLING FOR PAIN MEDICATION. SEE EMAR FOR MEDS GIVEN.
--- NOTE | 2022-08-06 19:26 | NUR ---
RECEIVED CHANGE OF SHIFT REPORT FROM DAY SHIFT RN.
--- NOTE | 2022-08-06 20:00 | NUR ---
DOES NOT ANSWER QUESTIONS OR REPORT DISCOMFORT WHEN STAFF IS IN ROOM. PATIENT DOES USE CALL LIGHT FOR REQUESTS FOR MEDS OR FOR FOOD.
--- NOTE | 2022-08-06 21:48 | NUR ---
PATIENT YELLING AT STAFF "I CAN'T TALK.... I'M NOT SUPPOSED TO TALK AFTER MY SURGERY TODAY.... I'M STRESSING OUT RIGHT NOW" WHEN ASKED PATIENT FOR PATIENT NAME/ PRIOR TO MEDS GIVEN.
[2022-08-07 00:23] VITALS: BP 130/66; PULSE 92; TEMP 99.1
--- NOTE | 2022-08-07 01:40 | NUR ---
PATIENT AGITATED, REPORTED NOT FEELING COMFORTABLE, FEELING PAIN TO BACK/ARM/ABD AND REFUSES TO MOVE. AGREED TO TAKE MORE PAIN MED, SEE MAR FOR MEDS GIVEN, PATIENT EVENTUALLY SAT SELF UP AT SIDE OF BED, TO DANGLE WITH STAFF IN ROOM, OBSERVED PATIENT SITTING, DOES NOT CONVERSE WITH STAFF'S ATTEMPTS TO IDENTIFY PATIENT'S NEEDS AND HOW TO HELP PATIENT. PATIENT EVENTUALLY DECIDED TO SIT UP IN W/C, STANDING SELF UP AT SIDE OF BED AND PIVOT TRANSFER WITH NO ASSIST FROM STAFF. PATIENT INSTRUCTED TO CALL FOR HELP GETTING BACK INTO BED WHEN SHE IS READY TO REPOSITION SELF.
--- NOTE | 2022-08-07 03:11 | NUR ---
PATIENT CURRENTLY SLEEPING WHILE SITTING UP IN W/C, BREATHING NONLABORED AND IV FLUIDS INFUSING WITH NO PROBLEMS. CT DRAINING SEROSANG FLUID OUTPUT IN TUBING.
[2022-08-07 04:17] VITALS: BP 120/55; PULSE 80; TEMP 98
--- NOTE | 2022-08-07 07:13 | NUR ---
CHANGE OF SHIFT REPORT GIVEN TO DAY SHIFT RNCOCO.
--- NOTE | 2022-08-07 07:21 | NUR ---
Shift report received from the night nurseLiat RN.
[2022-08-07 07:51] VITALS: BP 124/73; PULSE 89; TEMP 96.6
--- NOTE | 2022-08-07 07:55 | NUR ---
Pt APPARENTLY DROWSY AND LETHARGIC THIS AM, NOT WANTING TO TALK OR INTERACT WITH STAFF, THOUGH RESPONDING APPROPRIATELY WHEN ABSOLUTELY NECESSARY. SHIFT ASSESSMENT PERFORMED, SEE ASSESSMENT DOCUMENTATION. NO FURTHER REQUESTS OR ORDERS AT THIS TIME. BED IN LOW POSITION, CALL LIGHT WITHIN REACH. CARE ONGOING.
--- NOTE | 2022-08-07 07:59 | NUR ---
This nurse attempted to draw blood from central line for lab test, no blood return. Another nurse also attempted with no success. Patient refused to have blood from vein. Will notify IV therapist and ordering provider.
[2022-08-07 09:39] LABS: BASO % 0.4 % (0.0-2.0); EOS # 0.2 K/mm3 (0.0-0.7); EOS % 2.3 % (0.0-4.0); GRAN # 6.1 K/mm3 (1.4-6.5); GRAN % 79.5 % (42.2-75.2); HEMOGLOBIN 10.9 g/dl (12.5-16.0); LYMPH # 0.7 K/mm3 (1.2-3.4); LYMPH % 9.1 % (20.0-51.0); MEAN CELL VOLUME 90 fl (80.0-100.0); MEAN CORPUSCULAR HEMOGLOBIN 30 pg (27-31); MEAN CORPUSCULAR HGB CONC 33 g/dl (33.0-37.0); MONO # 0.6 K/mm3 (0.1-0.6); MONO % 8.1 % (1.7-9.3); PLATELET COUNT 239 K/mm3 (130-400); RED BLOOD COUNT 3.66 M/mm3 (4.10-5.30); REDCELL DISTRIBUTION WIDTH-CV 12.8 % (11.5-14.5)
[2022-08-07 09:40] LABS: HEMATOCRIT 32.8 % (37.0-47.0)
[2022-08-07 09:54] LABS: CALCIUM 7.3 mg/dL (8.4-10.2); CREATININE, serum 0.78 mg/dL (0.57-1.11); POTASSIUM 3.3 mmol/L (3.5-4.5)
--- NOTE | 2022-08-07 11:24 | NUR ---
Pt did not wake up enough to take oral medications. See MAR. PERRY orlando notified, stated she would try to rouse her.
[2022-08-07 12:00] VITALS: BP 127/59; PULSE 94; TEMP 97.5
--- NOTE | 2022-08-07 13:04 | NUR ---
Patient resting in bed awake , chest tube intact , and noted about 700ml of serosanguineous fluid in chest tube. Patient reports of occasional shortness of breath. Dressing on the site of chest tube intact. Patient refuse to answer questions and at times ignores staff, yells and not given eye contacts. Call vora within reach. See process intervention for notes.
[2022-08-07 16:34] VITALS: BP 119/70; PULSE 100; TEMP 98.2
--- NOTE | 2022-08-07 18:35 | NUR ---
Patient refused to take her scheduled eliquis this am, attempted to administered but refused. Patient states medication makes her sleepy and does not want to take it. Chest tube intact , patient reports of pain at the tubing site at right rib cage. Pain medication offered but patient refused to take it.
[2022-08-07 20:00] VITALS: BP 129/61; PULSE 96; TEMP 97.8
--- NOTE | 2022-08-07 20:09 | NUR ---
Patient assessed at this time, reports left sided chest pain, rated it at 3/10, Percocet given as ordered PRN, jj Agrawal PA informed at 2019, and ordered EKG and D-dimer, chest tube dressing to right CDI, chest tube attached to water sealed container, kept sterile, denies further needs, will continue to monitor.
--- NOTE | 2022-08-07 21:52 | NUR ---
Called Tanja, the Pa for critical D-dimer result of 1904 at 2151, received an order for CT stat.
--- NOTE | 2022-08-07 23:47 | NUR ---
Mel Andrade, from radiology ar [address]
[2022-08-08] VITALS (8 sets, daily range): BP systolic 94–147; BP diastolic 52–85; PULSE 85–103; TEMP 97.5–99.5
--- NOTE | 2022-08-08 00:42 | NUR ---
Patient up for CT of the chest with staff.
--- NOTE | 2022-08-08 01:10 | NUR ---
Patient back from CT.
--- NOTE | 2022-08-08 01:30 | NUR ---
Informed Tanja, the PA that CT chest is done.
--- NOTE | 2022-08-08 06:30 | NUR ---
Patient resting in bed, eyes closed, had 5ml output from the chest tube.
[2022-08-08 06:36] LABS: BASO # 0.1 K/mm3 (0.0-0.2); BASO % 0.6 % (0.0-2.0); EOS # 0.2 K/mm3 (0.0-0.7); EOS % 2.2 % (0.0-4.0); GRAN # 5.9 K/mm3 (1.4-6.5); GRAN % 71.4 % (42.2-75.2); LYMPH # 1.4 K/mm3 (1.2-3.4); LYMPH % 16.6 % (20.0-51.0); MEAN CELL VOLUME 89 fl (80.0-100.0); MEAN CORPUSCULAR HEMOGLOBIN 29 pg (27-31); MEAN CORPUSCULAR HGB CONC 33 g/dl (33.0-37.0); MEAN PLATELET VOLUME 10.5 fl (7.4-10.4); MONO # 0.7 K/mm3 (0.1-0.6); MONO % 8.3 % (1.7-9.3); PLATELET COUNT 309 K/mm3 (130-400)
[2022-08-08 06:40] LABS: HEMATOCRIT 36.5 % (37.0-47.0)
[2022-08-08 06:48] LABS: CALCIUM 8.7 mg/dL (8.4-10.2); CREATININE, serum 0.83 mg/dL (0.57-1.11); POTASSIUM 3.4 mmol/L (3.5-4.5)
--- NOTE | 2022-08-08 08:00 | NUR ---
PATIENT IS A&O BUT SEEMS TO HAVE DIFFICULTY COMPREHENDING/FOLLOWING SOME PATIENT EDUCATION. PATIENT TOOK A VERY LONG TIME TO TAKE HER MORNING MEDS. PATIENT DID NOT WANT TO TAKE HER MORNING DOSE OF ELIQUIS BECAUSE "IT MAKES ME TIRED". NURSING PROVIDED MEDICATION EDUCATION, AFTER SOME TIME SHE FINALLY AGREED TO TAKE HER MORNING MEDS. PATIENT SEEMS HOSTILE WITH STAFF AND THE NEXT TIME NURSING STAFF ENTER THE ROOM SHE IS FINE. VSS ON TELE. GENERAL DIET. IV FLUIDS INFUSING INTO RIGHT PICC. RIGHT CHEST TUBE TO WATERSEAL WITH SMALL AMOUNS OF BLOOD-TINGED DRAINAGE SO FAR THIS SHIFT. RLL ABSENT, LLL DEMINISHED. PATIENT C/O PAIN AT CHEST TUBE SITE. GAVE PRN PERCOCET, ONE TAB WITH AM MEDS. HEAD TO TOE ASSESSMENT COMPLETE. PATIENT STATES "I JUST WANT TO SLEEP AND EVERYONE JUST KEEPS COMING IN HERE." LIGHTS TURNED DOWN. CALL LIGHT IN REACH.
--- NOTE | 2022-08-08 12:14 | NUR ---
Web Page Designer rounds: Web Page Designer visit attempted. Patient declined because she was eating.
--- NOTE | 2022-08-08 20:52 | NUR ---
Patient sitting in a recliner at this time, head to toe assessment done, see shift assessment, PICC to right upper arm with ongoing potassium, took her HS meds without any problem, chest tube attached to water sealed container, dressing CDI, remains on room air, denies chest pain at this time, call light and personal items within reach, will continue to monitor.
[2022-08-09 03:55] VITALS: BP 132/81; PULSE 100; TEMP 98.5
[2022-08-09 06:26] LABS: BASO % 0.5 % (0.0-2.0); EOS # 0.2 K/mm3 (0.0-0.7); EOS % 2.8 % (0.0-4.0); GRAN # 5.5 K/mm3 (1.4-6.5); GRAN % 73.7 % (42.2-75.2); LYMPH # 1.1 K/mm3 (1.2-3.4); LYMPH % 14.4 % (20.0-51.0); MEAN CELL VOLUME 91 fl (80.0-100.0); MEAN CORPUSCULAR HEMOGLOBIN 29 pg (27-31); MEAN CORPUSCULAR HGB CONC 32 g/dl (33.0-37.0); MEAN PLATELET VOLUME 10.5 fl (7.4-10.4); MONO # 0.6 K/mm3 (0.1-0.6); MONO % 7.8 % (1.7-9.3); PLATELET COUNT 304 K/mm3 (130-400); RED BLOOD COUNT 3.79 M/mm3 (4.10-5.30); REDCELL DISTRIBUTION WIDTH-CV 13.2 % (11.5-14.5)
[2022-08-09 06:32] LABS: CALCIUM 8.6 mg/dL (8.4-10.2); CREATININE, serum 0.81 mg/dL (0.57-1.11); POTASSIUM 3.8 mmol/L (3.5-4.5)
[2022-08-09 06:33] LABS: HEMATOCRIT 34.3 % (37.0-47.0)
[2022-08-09 07:18] VITALS: BP 139/72; PULSE 91; TEMP 98.3
--- NOTE | 2022-08-09 08:00 | NUR ---
PATIENT IS A&O BUT REQUIRES SIMPLE COMMUNICATION/EDUCATION. PATIENT VERBALIZES A LEARNING DISABILITY AND NEEDS NURSING STAFF TO ORDER HER MEALS. IT APPEARS TO NURSING THAT SHE HAS DIFFICULTY READING SEVERAL OF THE WORDS ON THE MENU BUT GETS UPSET AND DEFENSIVE WHEN ASSISTED. PATIENT HAS A VERY BOLD PERSONALITY AND GETS UPSET VERY EASILY. WHILE RN AND PATIENT HAVE GOTTEN ALONG, THE PATIENT DID NOT WANT TO TAKE HER MORNING DOSE OF ELIQUIS AGAIN CONVINCED "IT MAKES ME TIRED". NURSING TRIED TO EXPLAIN THE NARCOTIC SHE REQUESTED IS LIKELY THE CAUSE OF HER DROWSINESS AND NOT THE ELIQUIS. AFTER A LONG TALK, JUST LIKE YESTERDAY, ABOUT PATIENT'S HX OF DVT AND RISK FOR CLOTS SHE DECIDED TO TAKE THE ELIQUIS. PATIENT THAN DEMANDED HER "ANXIETY" MED, ZOLOFT WHICH IS SCHEDULED AT 1600. WHILE THE PATIENT HAS TAKEN HER ZOLOFT AT 1600 THE LAST TWO DAYS, SHE DECIDED TODAY SHE WANTS IT IN THE MORNING STATING "ON WEDNESDAY & WEDNESDAY I CAN DO WHATEVER I WANT WITH MY MEDS". WHEN NURSING RETURNED WITH ZOLOFT THE PATIENT HAD CHANGED HER MIND AGAIN AND NOW DOES NOT WANT IT, UNDOCUMENTED AM DOSE. PATIENT SEEMS HOSTILE WITH STAFF AND THE NEXT TIME NURSING STAFF ENTER THE ROOM SHE IS FINE. VSS ON TELE. GENERAL DIET. IV FLUIDS INFUSING INTO RIGHT PICC. RIGHT CHEST TUBE TO WATERSEAL WITH SMALL AMOUNS OF BLOOD-TINGED DRAINAGE SO FAR THIS SHIFT. RLL ABSENT, LLL DEMINISHED. PATIENT C/O PAIN AT CHEST TUBE SITE. GAVE PRN PERCOCET, ONE TAB WITH AM MEDS. HEAD TO TOE ASSESSMENT COMPLETE. PATIENT UPSET BECAUSE SHE "JUST WANTS TO SLEEP AND EVERYONE JUST KEEPS WAKING HER UP". LIGHTS TURNED DOWN. CALL LIGHT IN REACH.
--- NOTE | 2022-08-09 10:30 | NUR ---
PATIENT C/O SITTING IN BED/ROOM FOR THE LAST TWO DAYS. PATIENT AMBULATED OUT IN HALLS, SBA, WITH STAFF HOLDING CHEST TUBE. PATEINT WAS ABLE TO AMBULATED DOWN THE HOUGH TO THE JOINT DESK/WINDOW BUT NEED A WC RIDE BACK TO ROOM. PATIENT TOLERATED ACTIVITY PRETTY WELL OVERALL. PATIENT NOW SITTING AT BEDSIDE PER HER REQUEST WITH CALL LIGHT IN REACH.
[2022-08-09 12:02] VITALS: BP 98/77; PULSE 86; TEMP 98
[2022-08-09 15:57] VITALS: BP 135/79; PULSE 88; TEMP 98.2
--- NOTE | 2022-08-09 16:30 | NUR ---
PATIENT CALLED OUT AFTER SHOWER AND REQUESTING HER EVENING KEPPRA. NURSING REMINDED PATIENT THIS IS A BID MED AND THE NEXT DOSE ISN'T DUE TILL 2100. PATIENT HAS TAKEN HER KEPPRA WHILE IN THE HOSPITAL IN THE EVENING SCHEDULED. PATIENT LIKES TO AGGRESIVELY VERBALIZE THAT "I GET TO DO WHATEVER I WANT ON THE WEEKENDS WITH MY MEDS". NURSING REMINDED PATIENT THAT SHE'S IN THE HOSPITAL AND WE HAVE TO FOLLOW DOCTORS ORDERS, WITH SAFETY PARAMETERS ON MEDS SUCH TIMING BETWEEN DOSES. PATIENT STARTED YELLING AT STAFF, THREW HER PHONE ACCROSS THE ROOM, AND STARTED PUNCHING THE COUCH AND HER BOOKBAG. NURSING ASKED PATIENT TO CALM DOWN. PATIENT ASKED STAFF TO LEAVE.
[2022-08-09 19:47] VITALS: BP 133/78; PULSE 100; TEMP 98.8
[2022-08-10] VITALS (7 sets, daily range): BP systolic 95–148; BP diastolic 32–82; PULSE 82–96; TEMP 97.4–98.7
--- NOTE | 2022-08-10 06:20 | NUR ---
[facility] P[facility] VITAL SIGNS REMAINED WITHIN NORMAL LIMITS. PT WAS VERY RUDE WITH RN AND DID NOT WANT RN IN ROOM. PT WAS KIND WITH PCT AND TOLD THIS RN THAT SHE IS ONLY NICE TO JAIRO WHICH WAS THE PCT TAKING CARE OF HER AT THIS TIME. PT VERY QUICK TO SNAP BACK WHEN RN ASKED QUESTIONS SUCH WOULD YOU LIKE ADJUSTED, CAN YOU RATE YOUR PAIN OR CAN I DO ANYTHING ELSE FOR YOU. PT REQUESTING NIGHT TIME MEDICATIONS AT 1900 WHEN RN EDUCATED THE PATIENT THAT THE MEDICATIONS IN THE SYSTEM DID NOT SHOW THEY WERE DUE UNTIL 2099 THE PATIENT TOLD THIS RN TO CALL SOMEONE AT HER FACILITY AND THEY WOULD CORRECT ME AND TELL ME WHEN THEY WERE DUE AND IT WAS ACTUALLY AT 8 PM . THE RN TOLD THE PATIENT THAT THINGS MAY BE DIFFERENT HERE BUT THAT THE RN WOULD BRING THE MEDICATIONS IN JUST BEFORE 8PM, WHEN RN ENTERED THE PATIENTS ROOM THE PATIENT IMMEDIATELY SAID "SO LET ME GUESS THEY WONT GIVE THEM TO ME" THIS RN TOLD THE PATIENT, NO I HAVE YOUR MEDICATIONS" RN READ PATIENT NIGHT TIME MEDICATIONS TO PATIENT AND PATIENT YELLED AT RN " I KNOW MY DAMN MEDICATIONS YOU DONT HAVE TO READ THEM TO ME " RN THEN SAID OK AND GAVE THE MEDICATIONS TO THE PATIENT. PATIENT THEN QUESTIONED WHAT THE MEDICATIONS WERE RN THEN READ OFF EACH MEDICATION TO THE PATIENT ONCE MORE. PT REFUSED MORNING LABS EVEN THOUGH THE PATIENT HAS A CENTRAL LINE. PT STATED THAT SHE WANTS SOMEONE TO COME AROUND AT ANOTHER TIME TO DO THIS.
--- NOTE | 2022-08-10 09:25 | NUR ---
Patient resting in bed. Breakfast ordered. Denies nausea. Chest tube remains to waterseal. Dressing intact. Minimal output, unable to get good listen to lungs, patient unwilling to reposition in bed to get a good listen to lungs. Picc to RUE to INt.
[2022-08-10 10:27] LABS: BASO % 0.5 % (0.0-2.0); EOS # 0.2 K/mm3 (0.0-0.7); EOS % 2.5 % (0.0-4.0); GRAN % 72.7 % (42.2-75.2); HEMOGLOBIN 11.8 g/dl (12.5-16.0); LYMPH # 1.3 K/mm3 (1.2-3.4); LYMPH % 15.4 % (20.0-51.0); MEAN CELL VOLUME 90 fl (80.0-100.0); MEAN CORPUSCULAR HEMOGLOBIN 29 pg (27-31); MEAN CORPUSCULAR HGB CONC 33 g/dl (33.0-37.0); MEAN PLATELET VOLUME 10.6 fl (7.4-10.4); MONO # 0.6 K/mm3 (0.1-0.6); MONO % 7.7 % (1.7-9.3); PLATELET COUNT 311 K/mm3 (130-400); RED BLOOD COUNT 4.01 M/mm3 (4.10-5.30); REDCELL DISTRIBUTION WIDTH-CV 13.1 % (11.5-14.5)
[2022-08-10 10:29] LABS: HEMATOCRIT 35.9 % (37.0-47.0)
[2022-08-10 10:41] LABS: CREATININE, serum 0.8 mg/dL (0.57-1.11); POTASSIUM 3.8 mmol/L (3.5-4.5)
--- NOTE | 2022-08-10 13:33 | NUR ---
Patient up to the bathroom voided & sitting up in chair at this time. Reports pain with movement, but not wanting pain medication. reports feeling "drugged up." Patient refusing to take any PO medication at this time. Only willing to take medication in IV. I discussed hygiene with patient, she is refusing. I offered toothbrush & she refused. New linens to bed, not willing to change her gown. Patient states she will do it at home. Attemted to education patient on importance, but not intersted in listening.
--- NOTE | 2022-08-10 13:34 | NUR ---
Cinder Crane Operator spoke with Hospitalist who advised a psych consult would be ordered for patient.
--- NOTE | 2022-08-10 18:02 | NUR ---
Extensive conversation had with patient regaurding her plan of care. We discussed her antibioitcs and she was finally agreeable to take the medications. Patient was concerned about medications on discharge, I reviewed medication list process upon discharge. Patient spoke with her brother on the phone & this nurse did as well with patient permission. I gave extensive update and answered questions to the best of my ability. Patient continues to refuse hygiene. She was assisted back to bed one assist. Chest tube remains to water seal. New fresh ice water provided. Patient offered pain medication & refused, she does appear uncomfortable. Patient having complaints of reflex, she reports this as a chronic problems offered to get medication orders, but she absolutely refuses to take any more medications. Patient seems quite paranoid at times. She is also quiet anxious. I was once again tried to provide education to patient, she was minimally interested. Banana ordered for dinner
[2022-08-11 04:00] VITALS: BP 115/67; PULSE 89; TEMP 98.1
--- NOTE | 2022-08-11 07:33 | NUR ---
Received shift report from the night nurse, PERRY Holloway
[2022-08-11 08:18] VITALS: BP 139/74; PULSE 93; TEMP 97.9
--- NOTE | 2022-08-11 09:37 | NUR ---
Follow-up visit; Patient declined visit from County Commissioner holding up her arms and displaying a 'stay away' signal. County Commissioner is not aware of any kind of prior issues with then patient.
[2022-08-11 09:40] LABS: BASO # 0.1 K/mm3 (0.0-0.2); BASO % 0.8 % (0.0-2.0); EOS # 0.2 K/mm3 (0.0-0.7); EOS % 2.5 % (0.0-4.0); GRAN # 5.4 K/mm3 (1.4-6.5); GRAN % 69.6 % (42.2-75.2); HEMOGLOBIN 11.8 g/dl (12.5-16.0); LYMPH # 1.4 K/mm3 (1.2-3.4); MEAN CELL VOLUME 88 fl (80.0-100.0); MEAN CORPUSCULAR HEMOGLOBIN 29 pg (27-31); MEAN CORPUSCULAR HGB CONC 33 g/dl (33.0-37.0); MEAN PLATELET VOLUME 10.3 fl (7.4-10.4); MONO # 0.6 K/mm3 (0.1-0.6); MONO % 7.8 % (1.7-9.3); PLATELET COUNT 297 K/mm3 (130-400); RED BLOOD COUNT 4.03 M/mm3 (4.10-5.30)
[2022-08-11 09:42] LABS: HEMATOCRIT 35.6 % (37.0-47.0)
--- NOTE | 2022-08-11 09:53 | NUR ---
Patient sitting at the edge of bed, c/o severe pain at the right rib (chest tube incision area). Patient reports of occasional shortness of breath due to pain. Bulky dressing at the right chest tube incision area intact. Noted about 750 drainage in the suction tube. Pain medication administered. Patient took all am meds except miralax. Call vora place within reach.
[2022-08-11 10:12] LABS: CALCIUM 8.9 mg/dL (8.4-10.2); CREATININE, serum 0.82 mg/dL (0.57-1.11)
[2022-08-11 11:39] VITALS: BP 146/81; PULSE 86; TEMP 97.9
--- NOTE | 2022-08-11 13:00 | NUR ---
Patient sitting up in a recliner by the bed. Patient states she is doing much better after the chest tube discontinued. Patient rated pain level 6/10 and tylenol administered.
--- NOTE | 2022-08-11 15:45 | NUR ---
Telehealth visit conducted with Dr. Kwabena Oliva, Infectious Disease. Burr Sander initiated without any difficulties during exam. All questions were answered by Dr. Oliva.
[2022-08-11 15:56] VITALS: BP 139/72; PULSE 83; TEMP 97.7
--- NOTE | 2022-08-11 17:54 | NUR ---
Nurse tech offered to assist patient with shower, Patient declined. Patient stats she took a sponge bath.
[2022-08-11 20:13] VITALS: BP 139/84; PULSE 78; TEMP 97.6
--- NOTE | 2022-08-11 22:35 | NUR ---
AT THE BEGINNING FO THE SHIFT THE PATIENT WAS VERY KIND AND ACCEPTING WITH THIS RN. THIS RN HAS HAD THE PATIENT FOR THE LAST 2 DAYS AND THIS IS THE FIRST TIME THE PATIENT HAS BEEN KIND AND NOT SCREAMED AT THE RN AND ACTUALLY ALLOWED THE RN TO COMPLETE A FULL ASSESSMENT ON HER. RN ASSESSED PATIENT GROIN AREA AND APPLIED MOISTURE CREAM BETWEEN PATIENTS LEGS TO INNER THIGHS. PT THANKED THIS RN FOR THIS. PT REQUESTED TO ONLY TAKE HALF OF HER PAIN MEDICATION STATING "THE PAIN IS NOT THAT BAD RIGHT NOW" PT TOOK THE REST OF HER MEDICATIONS WITH NO STRUGGLES OR ARGUMENTS. AT 2215 PT CALLED OUT ASKING RN TO COME TO HER ROOM, RN AT BEDSIDE PT ASKED RN IF THERE WAS ANY WAY SHE COULD WALK HER AROUND THE HALLS. RN ASKED IF IT WOULD BE OK IF THE PCT FRANKLYN COMPLETED THIS TASK THE RN STILL HAS MEDICATIONS TO ADMIINSTER TO ANOTHER PATIENT AT THIS TIME. THE PATIENT SEEMED TO BECOME RESERVED BUT ONCE THIS RN PROMISED THE PATIENT THAT THE PCT WAS KIND AND WOULD WALK WITH HER SHE BRIGHTENED BACK UP AND ALLOWED THE PCT TO WALK THE PATIENT IN THE HALLS. PATIENT AMBULATED IN THE HALLS WITH A STAND BY ASSIST WITH A WALKER IN THE HALLS FOR 20 MINUTES. PT ALSO TALKED WITH A STUFFED AMINIAL WITH STAFF IF THE ANIMAL WAS A REAL HUMAN OR ANIMAL ASKING THE ANIMAL TO TELL THE STAFF ITS NAME. THE STUFFED ANIMAL APPEARED TO MAKE THE PATIENT HAPPY AND KEPT HER FROM LASHING OUT TO STAFF WHICH SHE PREVIOUSLY HAD BEEN DOING. PT CURRENTLY RESTING IN BED. NO NEW REQUESTS AT THIS TIME.
[2022-08-11 22:53] VITALS: BP 131/57; PULSE 96; TEMP 97.9
[2022-08-12 04:31] VITALS: BP 129/82; PULSE 97; TEMP 98.5
[2022-08-12] MEDS ORDERED: ELIQUIS 5MG PO (07:33)
[2022-08-12] MEDS ORDERED: CLEOCIN HCL300 MG PO (07:36)
[2022-08-12] MEDS ORDERED: LEVAQUIN 750MG750 M1 PO (07:36)
[2022-08-12] MEDS ORDERED: ZOLOFT 100MG100 MG PO (07:36)
--- NOTE | 2022-08-12 07:40 | NUR ---
Received shift report from the night nurseJewel RN.
[2022-08-12 08:09] VITALS: BP 118/60; PULSE 87; TEMP 98.1
[2022-08-12 09:48] LABS: BASO # 0.1 K/mm3 (0.0-0.2); BASO % 0.6 % (0.0-2.0); EOS # 0.2 K/mm3 (0.0-0.7); EOS % 2.2 % (0.0-4.0); GRAN % 70.9 % (42.2-75.2); HEMOGLOBIN 11.4 g/dl (12.5-16.0); LYMPH # 1.5 K/mm3 (1.2-3.4); LYMPH % 17.4 % (20.0-51.0); MEAN CELL VOLUME 90 fl (80.0-100.0); MEAN CORPUSCULAR HEMOGLOBIN 29 pg (27-31); MEAN CORPUSCULAR HGB CONC 32 g/dl (33.0-37.0); MEAN PLATELET VOLUME 10.3 fl (7.4-10.4); MONO # 0.7 K/mm3 (0.1-0.6); MONO % 7.8 % (1.7-9.3); PLATELET COUNT 264 K/mm3 (130-400); RED BLOOD COUNT 3.94 M/mm3 (4.10-5.30); REDCELL DISTRIBUTION WIDTH-CV 13.2 % (11.5-14.5)
[2022-08-12 09:52] LABS: HEMATOCRIT 35.6 % (37.0-47.0)
[2022-08-12 09:54] LABS: CALCIUM 9.1 mg/dL (8.4-10.2); CREATININE, serum 0.8 mg/dL (0.57-1.11)
--- NOTE | 2022-08-12 11:29 | NUR ---
Patient resting in bed, alert and oriented. PICC line at right upper arm intact, no redness noted at site. Patient denies pain at this time. See process intervention for notes.
[2022-08-12 12:28] VITALS: BP 139/73; PULSE 99; TEMP 98.1
--- NOTE | 2022-08-12 14:47 | NUR ---
Discharge instruction given to patient's point of contact and caregiver. PICC line discontinued for RICHARD. Patient discharged home at 1353.
[2022-08-14] MEDS ORDERED: ZOLOFT 100MG100 MG PO (11:57)
[2022-08-14] MEDS ORDERED: CLEOCIN HCL300 MG PO (11:57)
[2022-08-14] MEDS ORDERED: LEVAQUIN 750MG750 M1 PO (11:57)
== END 2022-08-12 13:53 | disposition home or self-care (01) | DRG 186 ==
LOC: COL.ER 12:30 → MEDICAL 15:09 → SURG 08-06 12:25
PROVIDERS: Internal Medicine; Internal Medicine Pulmonary Disease; Physician Assistant; ADMIT Student in an Organized Health Care Education/Training Program
PROC: 02HV33Z Insertion of Infusion Device into Superior Vena Cava, Percutaneous Approach (ICD-10-PCS; principal; 2022-08-05)
PROC: 0W9900Z Drainage of Right Pleural Cavity with Drainage Device, Open Approach (ICD-10-PCS; 2022-08-06)
DX: J90 Pleural effusion, not elsewhere classified (principal); J86.9 Pyothorax without fistula; J98.11 Atelectasis; R65.10 Systemic inflammatory response syndrome (SIRS) of non-infectious origin without acute organ dysfunction; Z68.41 Body mass index [BMI] 40.0-44.9, adult; F41.9 Anxiety disorder, unspecified; G40.909 Epilepsy, unspecified, not intractable, without status epilepticus; F32.A Depression, unspecified; Z66 Do not resuscitate; Z20.822 Contact with and (suspected) exposure to COVID-19; I10 Essential (primary) hypertension; F40.240 Claustrophobia; G89.29 Other chronic pain; E66.9 Obesity, unspecified; E87.70 Fluid overload, unspecified; R62.50 Unspecified lack of expected normal physiological development in childhood; F43.20 Adjustment disorder, unspecified; Z90.710 Acquired absence of both cervix and uterus; Z98.51 Tubal ligation status; Z88.5 Allergy status to narcotic agent; Z88.0 Allergy status to penicillin; Z88.6 Allergy status to analgesic agent; Z91.041 Radiographic dye allergy status; Z86.711 Personal history of pulmonary embolism; Z79.01 Long term (current) use of anticoagulants; Z23 Encounter for immunization
CPT/HCPCS: A7041; A7048; A9284; C1751; J0692; J0696; J1940; J2270; J2704; J3010; J3370; J3480; J7030; J7050; J7120; Q9967

== ENCOUNTER 2022-08-13 01:28 | Emergency (ER) | payer MEDICAID ==
[~2022-08-13] VITALS: Ht 170.2 cm; Wt 122.0 kg
[~2022-08-13 01:28] MED LIST changes: +CLEOCIN HCL300 MG PO; +LEVAQUIN 750MG750 M1 PO; +ZOLOFT 100MG100 MG PO
[2022-08-13 01:34] VITALS: TEMP 97.6
[2022-08-13 02:15] VITALS: BP 122/89; PULSE 90
[2022-08-14] MEDS ORDERED: ZOLOFT 100MG100 MG PO (11:57)
[2022-08-14] MEDS ORDERED: LEVAQUIN 750MG750 M1 PO (11:57)
[2022-08-14] MEDS ORDERED: CLEOCIN HCL300 MG PO (11:57)
== END 2022-08-13 02:15 | disposition home or self-care (01) ==
LOC: COL.ER 01:28
DX: Z71.89 Other specified counseling (principal); J90 Pleural effusion, not elsewhere classified; G40.909 Epilepsy, unspecified, not intractable, without status epilepticus; F32.A Depression, unspecified; Z86.711 Personal history of pulmonary embolism; Z79.01 Long term (current) use of anticoagulants; Z79.899 Other long term (current) drug therapy